=== PATIENT | male | born 1975 | race Two or more races ===

== ENCOUNTER 2017-05-22 11:28 | Inpatient (IN) | payer MEDICAID, OTHER ==
[2017-05-22] VITALS (16 sets, daily range): BP systolic 95–127; BP diastolic 55–77
[~2017-05-22] VITALS: Ht 180.3 cm; Wt 70.3 kg
[~2017-05-22 11:28] MED LIST: BENZ200C45 PO; DIVA500T4 PO; DIVA500T7 PO; LEVE500T20 PO; PHEN-410; QUET25TA; TRAZ-144 PO
--- NOTE | 2017-05-22 11:41 | NUR ---
PT PROVIDING URINE SAMPLE AT THIS TIME
--- NOTE | 2017-05-22 11:50 | NUR ---
DR ISAAC AT BEDSIDE FOR EVAL
[2017-05-22] MEDS ORDERED: IV NS 0.9% 1,000 ML BAG IV ONE (12:00)
[2017-05-22] MEDS ORDERED: ACTIVATED CHARCOAL 25 GM/120 ML TUBE PO ONE (12:00)
--- NOTE | 2017-05-22 12:08 | NUR ---
CALLED POISON CONTROL, SPOKE WITH PATRICIA, HE SAID TO WATCH PT FOR A MINIMUM OF 6 HOURS, TO LOOK OUT FOR DECREASING LEVEL OF CONSCIOUSNESS, SINUS TACHY, HYPOTENSION, SEIZUIRE, HYPERTHERMIA, HE SAID TO DO AN EKG AND TO LOOK OUT FOR QT WIDENING AND IF ITS GREATER THAN 500 MILISECONDS TO CONSIDER GIVING MAG SULFATE. HE SAID TO ORDER A TYLENOL LEVEL, ASPIRIN LEVEL, URINE TOX SCREEN, AND CHEMISTRY, INFORMED OF WHAT PATRICIA SAID.
--- NOTE | 2017-05-22 12:08 | NUR ---
REHANA #18 IV ACCESS. BLOOD SAMPLE COLLECTED SENT TO LAB
[2017-05-22 12:11] LABS: BASOPHILS % (AUTO) 0.2 % (0.0-2.0); EOSINOPHILS # (AUTO) 0.2 /CMM (0.0-0.7); EOSINOPHILS % (AUTO) 2.9 % (0.0-6.0); HEMATOCRIT 40 % (39-51); HEMOGLOBIN 13.5 g/dL (13.5-17.5); LYMPHOCYTES # (AUTO) 1.1 /CMM (0.8-4.8); LYMPHOCYTES % (AUTO) 14.4 % (20.0-44.0); MEAN CORPUSCULAR HEMOGLOBIN 32 PG (26.0-33.0); MEAN CORPUSCULAR HGB CONC 34 g/dl (31.0-36.0); MEAN CORPUSCULAR VOLUME 95 fL (80-96); MONOCYTES # (AUTO) 0.4 /CMM (0.1-1.30); MONOCYTES % (AUTO) 4.7 % (2.0-12.0); NEUTROPHILS # (AUTO) 6.1 /CMM (1.8-8.9); NEUTROPHILS % (AUTO) 77.8 % (43.0-81.0); PLATELET COUNT (AUTO) 208 /CMM (150-450); RDW COEFFICIENT OF VARIATION 12.8 (11.5-15.0); RED BLOOD CELL COUNT(AUTO) 4.18 MIL/uL (4.5-6.0); WHITE BLOOD COUNT (AUTO) 7.8 K/uL (4.3-11.0)
[2017-05-22 12:11] LABS: APPEARANCE,URINE Clear (CLEAR); BILIRUBIN,URINE Negative (NEGATIVE); BLOOD, URINE Trace-lysed Ery/uL (NEGATIVE); COLOR,URINE Yellow (YELLOW); KETONES,URINE Trace (NEGATIVE); LEUKOCYTE ESTERASE ,URINE Negative (NEGATIVE); NITRITE, URINE Negative (NEGATIVE); PH,URINE 6.5 (5.0-8.0); PROTEIN,URINE Negative (NEGATIVE); UGLUCOSE Negative (NEGATIVE); UROBILINOGEN,URINE 0.2 EU/dL (0.2)
[2017-05-22 12:18] LABS: WBC,URINE 0-3 /HPF (0-3)
[2017-05-22 12:19] LABS: BACTERIA,URINE None seen /HPF (None Seen); SQUAMOUS EPITHELIAL CELL,UR Few /HPF (None Seen)
[2017-05-22] MEDS ORDERED: ACTIVATED CHARCOAL 25 GM/120 ML TUBE ONE ×2 (12:20→12:28)
[2017-05-22 12:22] LABS: CALCIUM, SERUM 8.7 mg/dL (8.5-10.1); CARBON DIOXIDE 31 mmol/L (21-32); CHLORIDE 106 mmol/L (98-107); CREATININE 1.1 mg/dL (0.6-1.3); GLUCOSE 94 mg/dL (74-106); POTASSIUM 4.3 mmol/L (3.5-5.1); SODIUM SERUM 144 mmol/L (136-145); UREA NITROGEN, BLOOD 13 mg/dL (7-18)
[2017-05-22 12:27] LABS: ACETAMINOPHEN 0 ug/ml (10-30); ALANINE AMINOTRANSFERASE 17 U/L (12-78); ALBUMIN 3.6 g/dL (3.4-5.0); ALCOHOL, BLOOD < 3 mg/dL (0-0); ALKALINE PHOSPHATASE 38 U/L (46-116); ASPARTATE AMINOTRANSFERASE 14 U/L (15-37); BILIRUBIN,DIRECT 0.1 mg/dL (0.0-0.2); BILIRUBIN,TOTAL 0.2 mg/dL (0.2-1.0); TOTAL PROTEIN, SERUM 6.8 g/dL (6.4-8.2)
[2017-05-22 12:28] LABS: SALICYLATE 2.3 mg/dL (2.8-20.0)
--- NOTE | 2017-05-22 13:00 | NUR ---
DR.DERDERYAN JACKLYN RAILROAD YARD WORKER, TRANSFERRED CALL TO DR. ISAAC
--- NOTE | 2017-05-22 13:03 | NUR ---
CALLED NURSING SUP. FOR ICU BED
--- NOTE | 2017-05-22 13:11 | NUR ---
SUX GIVEN VERBAL ORDER DR RICHARD FOR INTUBATION
--- NOTE | 2017-05-22 13:15 | NUR ---
INTUBATED PATIENT BY DR ISAAC
--- NOTE | 2017-05-22 13:31 | NUR ---
ATTEMPTERD TO CALL REPORT, NURSE NOT AVAILABLE. WILL CALL BACK IN 10 MINUTES
--- NOTE | 2017-05-22 13:31 | NUR ---
PT IS INTUBATED BY RAZIA SWARTZ FOR AIRWAY PROTECTION. 1ST ATTEMPT INTUBATION FAILED,2ND ATTEMPT INTUBATION SUCCESSFUL. 7.5 ET TUBE IS SECURED @ 23 CM LIPLINE, CO2 DETECTOR CHANGED TO GOLD COLOR POST INTUBATION WITH CLEAR BREATH SOUNDS BILATERAL. VENT SETTINGS PER RT DRIVEN PROTOCOL: AC 16, VT 550, FIO2 100%, PEEP 5 Addendum: 05/22/17 at 1407 by GOYO GRAVES RT Amended: Links added.
[2017-05-22] MEDS ORDERED: PROPOFOL 100 ML IV ONE (13:37)
--- NOTE | 2017-05-22 13:51 | NUR ---
ATTEMPTED TO CALL FOR REPORT, AZAM OLIVA NOWHERE TO BE FOUND PER CAR INSTALLATIONS SUPERVISOR
[2017-05-22] MEDS: PROPOFOL 100 ML IV PRN ×2 (13:55→21:12)
--- NOTE | 2017-05-22 14:03 | NUR ---
GIVEN TO AZAM OLIVA FOR COCREPORT Addendum: 05/22/17 at 1403 by TOM REPORT GIVEN TO AZAM OLIVA FOR FARTUN
[2017-05-22] MEDS ORDERED: SUCCINYLCHOLINE CHLORIDE 20 MG/ML VIAL IV ONE (14:30)
[2017-05-22] MEDS: PANTOPRAZOLE 40 MG TABLET.DR PO SCH (15:00)
[2017-05-22] MEDS ORDERED: ACETAMINOPHEN 325 MG TABLET PO PRN (15:00)
[2017-05-22] MEDS ORDERED: Z GUARD REMEDY 2 OZ OINT TP PRN (15:00)
[2017-05-22] MEDS ORDERED: HYDROCODONE/APAP 5/325MG 1 EACH TABLET PO PRN (15:00)
[2017-05-22] MEDS ORDERED: ZOLPIDEM TARTRATE 5 MG TABLET PO PRN (15:00)
[2017-05-22] MEDS ORDERED: ONDANSETRON HCL/PF 4 MG/2 ML VIAL IVP PRN (15:00)
[2017-05-22] MEDS: ENOXAPARIN SODIUM 40 MG/0.4 ML DISP.SYRIN SQ SCH (15:30)
[2017-05-22] MEDS: Magnesium 1GM/D5W 100ML PREMIX 100 ML IV SCH ×2 (15:30→16:23)
[2017-05-22 15:33] LABS: ABG OXYGEN SATURATION 98.7 % (92.0-98.5); ABG PCO2 42.2 mmHg (35.0-45.0); ABG PH 7.405 (7.350-7.450); ABG PO2 223.4 mmHg (75.0-100.0); AaDO2 85.6 mmHg; COHb 0.5 % (0.5-1.5); O2Hb 97.2 % (94.0-97.0); PEEP,BG 5 cm H2O; SITE, ABG Left Radial; VT, ABG 550 mL
--- NOTE | 2017-05-22 19:47 | NUR ---
GEOLOGICAL SCIENCE TEACHER: RECEIVED PT FROM AZAM/RN , ADMITTED TODAY WITH DRUG OVERDOSE, INTUBATED 7.03/21, VENT SETTING VERIFIED AC 16 TV 550 FIO2 35% PEEP 5. SEDATED WITH DIPRIVAN AT 30 MCG/KG/MIN. BILATERAL SOFT RESTRAINTS ON FOR SAFETY REASON AND TO PREVENT SELF EXTUBATION. CARRILLO CATH INTACT. IV ACCESS RH #18, LEFT H#18 NS RUNNING AT 150 ML/HR. SKIN IS INTACT. KEEP TURING Q2H. SKIN PROTECTION MEASURES APPLIED. SAFETY PRECAUTION PLACED. BED ALARM ON. COMPLETE ASSESSMENT SEE ON FLOW SHEET. V/S STABLE, EKG Q4H TO CHECK QT INTERVALS IF ITS MORE THAN 500 CALL MD. AFEBRILE. KEEP MONITORING...
--- NOTE | 2017-05-22 19:51 | NUR ---
PT RECEIVED INTUBATED WITH 7.5 ETT SECURED AT 23CM AT THE LIP. NO RESP DISTRESS NOTED. PT TOLERATING VENT SETTINGS. BS COARSE BILAT. SX'D FOR THIN DARK SECRETIONS. VENT ALARMS SET AND AUDIBLE. AMBU BAG AT BEDSIDE. WILL CONTINUE TO MONITOR. Addendum: 05/22/17 at 1953 by RICHARD WILKS RT Amended: Links added.
[2017-05-22] MEDS: IV NS 0.9% 1,000 ML IV PRN (23:53)
[2017-05-23] VITALS (27 sets, daily range): BP systolic 101–148; BP diastolic 65–100
[2017-05-23] MEDS: PROPOFOL 100 ML IV PRN ×2 (03:13→06:42)
[2017-05-23 04:57] LABS: BASOPHILS # (AUTO) 0.1 /CMM (0.0-0.2); BASOPHILS % (AUTO) 0.7 % (0.0-2.0); EOSINOPHILS # (AUTO) 0.4 /CMM (0.0-0.7); EOSINOPHILS % (AUTO) 4.6 % (0.0-6.0); HEMATOCRIT 41 % (39-51); HEMOGLOBIN 14.6 g/dL (13.5-17.5); LYMPHOCYTES # (AUTO) 1.7 /CMM (0.8-4.8); LYMPHOCYTES % (AUTO) 19.9 % (20.0-44.0); MEAN CORPUSCULAR HEMOGLOBIN 34 PG (26.0-33.0); MEAN CORPUSCULAR HGB CONC 36 g/dl (31.0-36.0); MEAN CORPUSCULAR VOLUME 96 fL (80-96); MONOCYTES # (AUTO) 0.8 /CMM (0.1-1.30); MONOCYTES % (AUTO) 9.2 % (2.0-12.0); NEUTROPHILS # (AUTO) 5.5 /CMM (1.8-8.9); NEUTROPHILS % (AUTO) 65.6 % (43.0-81.0); PLATELET COUNT (AUTO) 176 /CMM (150-450); RED BLOOD CELL COUNT(AUTO) 4.26 MIL/uL (4.5-6.0); WHITE BLOOD COUNT (AUTO) 8.5 K/uL (4.3-11.0)
[2017-05-23 05:26] LABS: ALBUMIN 2.8 g/dL (3.4-5.0); BILIRUBIN,TOTAL 0.6 mg/dL (0.2-1.0); CALCIUM, SERUM 7.4 mg/dL (8.5-10.1); MAGNESIUM 2.4 mg/dL (1.8-2.4); PHOSPHORUS 1.8 mg/dL (2.5-4.9); POTASSIUM 4.1 mmol/L (3.5-5.1); TOTAL PROTEIN, SERUM 5.8 g/dL (6.4-8.2)
[2017-05-23] MEDS: IV NS 0.9% 1,000 ML IV PRN ×2 (06:31→12:47)
[2017-05-23] MEDS: PANTOPRAZOLE 40 MG TABLET.DR PO SCH (07:21)
--- NOTE | 2017-05-23 08:50 | NUR ---
SCHOOL PATROL- DR. WADDELL AT BEDSIDE. UPDATED MD ON PT'S CONDITION. STAT EKG ORDERED PER MD. 0900- RT AT BEDSIDE. EKG DONE. GIVEN TO MD FOR REVIEW. REPEAT EKGS NO LONGER NEEDED. ORDER DISCONTINUED. WILL CONTINUE TO MONITOR.
--- NOTE | 2017-05-23 09:00 | NUR ---
TECHNICAL INTERN- SEDATION VACATION DONE. PT AWAKE, TRACKS AND OPENS EYES. ABLE TO FOLLOW SIMPLE COMMANDS. DIPRIVAN RE-STARTED PER PROTOCOL.
--- NOTE | 2017-05-23 09:15 | NUR ---
DECORATION CHECKER- DR. CONTRERAS AT BEDSIDE. UPDATED MD ON PT'S STATUS. OBTAINED ORDERS FOR VENT CHANGES. RELAYED CHANGES TO RT. ABGS TO BE DONE 30 MINS POST VENT CHANGES. ALL ORDERS PLACED. WILL CONTINUE TO MONITOR. 0955- PT EXTUBATED BY RT. NO RESPIRATORY DISTRESS NOTED. WILL CONTINUE TO MONITOR.
[2017-05-23] MEDS ORDERED: POTASSIUM PHOSPHATE MM 15 MMOL in IV D5W 250 ML IV SCH (09:30)
[2017-05-23 09:39] LABS: ABG BASE EXCESS 0.3 mmol/L; ABG OXYGEN SATURATION 98.2 % (92.0-98.5); ABG PCO2 40.5 mmHg (35.0-45.0); ABG PH 7.408 (7.350-7.450); ABG PO2 155.7 mmHg (75.0-100.0); AaDO2 46.8 mmHg; COHb 0.3 % (0.5-1.5); MetHb 0.9 % (0.0-1.5); SITE, ABG Left Radial; VENT MODE, BG SIMV PS12; VT, ABG 550 mL
--- NOTE | 2017-05-23 09:56 | NUR ---
PT EXTUBATED POSTED ABG PER MD ORDER. ZERO DISTRESS NOTED AT THIS TIME.
[2017-05-23] MEDS: POTASSIUM PHOSPHATE MM 7.5 MMOL in IV D5W 100 ML IV SCH ×2 (10:30→13:40)
--- NOTE | 2017-05-23 10:46 | NUR ---
Pt. is a 41 year old male who was admitted to [facility] for an intentional overdose. YVONNE sent clinicals via email to [facility] intake for psychiatric hospitalization. YVONNE received a call from Imelda (intake) at [facility] ([phone]) informing YVONNE that the pt. was discharged from [facility] yesterday approximately around 10:30AM and was given a prescription for Seroquel. It appears to be that pt. went to the pharmacy filled his prescription of Seroquel and intentionally overdosed on the medication prior to coming to [facility]. Imelda informed SW they will not be able to accept pt. back at their facility and states he needs a locked facility. YVONNE consulted with psychiatrist Dr. Staples regarding YVONNE's conversation with Imelda from [facility]. Dr. Staples informed YVONNE that pt. informed him that he did fill his prescription, overdosed on the pills and walked himself to the ED at [facility]. Once pt. is downgraded from ICU to the medical floor, pt. will be evaluated by the crisis team for a possible 5150 hold if deemed appropriate.
[2017-05-23] MEDS ORDERED: SUCCINYLCHOLINE CHLORIDE 20 MG/ML VIAL IV ONE (10:56)
--- NOTE | 2017-05-23 16:40 | NUR ---
CNC MANUFACTURING ENGINEER- SPOKE TO DR. WADDELL. OBTAINED ORDERS TO REMOVE CARRILLO CATHETER. PT A/O X3, CONTINENT AND ABLE TO USE URINAL. STARTED ON SOFT DIET AND DRINKING FLUIDS. OK TO D/C IVF OF NS @ 150 MLS/HR PER MD. ORDERS PLACED. WILL CONTINUE TO MONITOR.
--- NOTE | 2017-05-23 17:00 | NUR ---
TRICK RODEO RIDER- CARRILLO CATHETER REMOVED. PT TOLERATED PROCEDURE WELL. URINAL AT BEDSIDE. WILL CONTINUE TO MONITOR.
[2017-05-23] MEDS: ENOXAPARIN SODIUM 40 MG/0.4 ML DISP.SYRIN SQ SCH (21:11)
[2017-05-23] MEDS: QUETIAPINE FUMARATE 100 MG TABLET PO SCH (21:12)
[2017-05-23] MEDS: DIVALPROEX SODIUM 500 MG TABLET.DR PO SCH (21:12)
--- NOTE | 2017-05-23 22:45 | NUR ---
FENCE INSTALLER HELPER: P COMFORTABLY SLEEPING, SITTER AT BEDSIDE FOR SUICIDAL PRECAUTION, PT DENIED SUICIDE PLAN AT THIS TIME. [place] EVAL UPON DOWNGRADE TO ANOTHER UNIT. PT DENIED HERNANDEZ. DUE MEDS GIVEN. ON ROOM AIR SATURATING 99% WITHOUT DISTRESS. SINUS RHYTHM ON MONITOR. AFEBRILE. BP STABLE. ONGOING MONITORING...
[2017-05-24] VITALS (10 sets, daily range): BP systolic 118–130; BP diastolic 67–89
--- NOTE | 2017-05-24 07:30 | NUR ---
ICU/RN: PT RECEIVED IN BED, A&OX4, CALM, COOPERATIVE, NO DISTRESS NOTED, C/O MILD SORE THROAT S/P EXTUBATION, PROVIDED WITH ICE CHIPS. DENIES SI AT THIS TIME, PT APPEARS TO BE HOPEFUL, STATES "IM MAGUI TO BE ALIVE AFTER TAKING ALL THOSE PILLS."
[2017-05-24] MEDS: DIVALPROEX SODIUM 500 MG TABLET.DR PO SCH (07:57)
[2017-05-24] MEDS: PANTOPRAZOLE 40 MG TABLET.DR PO SCH (07:58)
[2017-05-24] MEDS: QUETIAPINE FUMARATE 100 MG TABLET PO SCH (07:58)
--- NOTE | 2017-05-24 10:45 | NUR ---
MS DIGESTER OPERATOR NOTE PATIENT RECEIVED FROM ICU, RECEIVED REPORT FROM HAZEL MEDINA. NO PAIN AT THIS TIME. NO SOB OR DISTRESS NOTED. CALL LIGHT WITHIN REACH. SAFETY MEASURES IMPLEMENTED. SITTER AT BEDSIDE. AWAITING MD CONSULT WITH DR. RAHMAN. NO NEW ORDERS AT THIS TIME. ABLE TO COMMUNICATE NEEDS. WILL CONTINUE TO MONITOR
--- NOTE | 2017-05-24 10:45 | NUR ---
MS/RN: PT TRANSFERRED TO MS 321-2 IN STABLE CONDITION ACCOMPANIED BY RN AND SITTER. REPORT GIVEN TO HAZEL CASTELLANOS FOR FARTUN.
--- NOTE | 2017-05-24 16:37 | NUR ---
MS CANNERY WORKER NOTE PATIENT IS ALERT AND ORIENTED x4. NO PAIN AT THIS TIME. NO SOB OR DISTRESS NOTED. ALL BELONGINGS ACCOUNTED FOR. IV REMOVED, SKIN INTACT. ON 5150 HOLD STARTED ON 05/24/17. TRANSFERRING TO [facility], GAVE REPORT TO HAZEL PEREZ AT [facility] UNDER DR. BOND. MEDICALLY CLEARED FROM AND DR. RAHMAN. LEFT VIA AMBULANCE. ALL DISCHARGE INSTRUCTIONS GIVEN TO HAZEL PEREZ.
== END 2017-05-24 16:38 | DRG 812 ==
LOC: ER 11:36 → ICU 13:57 → MED 05-24 10:42
PROVIDERS: ADMIT Internal Medicine; ATTEND Internal Medicine
PROC: 0BH17EZ Insertion of Endotracheal Airway into Trachea, Via Natural or Artificial Opening (ICD-10-PCS; principal; 2017-05-22)
PROC: 5A1945Z Respiratory Ventilation, 24-96 Consecutive Hours (ICD-10-PCS; principal; 2017-05-22)
DX: T43.592A Poisoning by other antipsychotics and neuroleptics, intentional self-harm, initial encounter (principal); J96.00 Acute respiratory failure, unspecified whether with hypoxia or hypercapnia; G40.909 Epilepsy, unspecified, not intractable, without status epilepticus; E83.39 Other disorders of phosphorus metabolism; J45.909 Unspecified asthma, uncomplicated; I25.10 Atherosclerotic heart disease of native coronary artery without angina pectoris; I10 Essential (primary) hypertension; Y92.009 Unspecified place in unspecified non-institutional (private) residence as the place of occurrence of the external cause; F31.5 Bipolar disorder, current episode depressed, severe, with psychotic features; Z79.899 Other long term (current) drug therapy
CPT/HCPCS: 31720; 36415; 36600; 71010-TC; 80048-TC; 80053-TC; 80061-TC; 80076-TC; 80164-TC; 80305; 81000-TC; 82803-TC; 83735-TC; 84100-TC; 84484-TC; 85025-TC; 87081-TC; 94002-TC; 94003-TC; 94762-TC; 94799-TC; A4606; G0480; J0330; J1650; J3475; J3490; J7030; J7060; Z7610

== ENCOUNTER 2022-04-11 23:27 | Emergency (ER) | payer OTHER ==
[~2022-04-11] VITALS: Ht 180.3 cm; Wt 72.6 kg
[~2022-04-11 23:27] MED LIST changes: -BENZ200C45 PO; +BENZ200C53 PO; +DIVA-78 PO; -DIVA500T7 PO; -TRAZ-144 PO; +TRAZ-182 PO
--- NOTE | 2022-04-11 23:42 | NUR ---
TO ER BED 18. BIBS FOR S/I WITH PLAN TO OD ON PILLS SEEKING VOLUNTARY ADMISSION TO [facility] Y[facility]. AAOX4. AMBULATORY. BELONGINGS OBTAINED AND SECURED. CHANGED INTO GOWN. SITTER 1:1. CONNECTED TO MONITOR. VSS. AWAITING MD MCDONALD
--- NOTE | 2022-04-11 23:43 | NUR ---
COVID SWAB DONE AND SENT TO LAB
--- NOTE | 2022-04-11 23:43 | NUR ---
URINE COLLECTED AND SENT TO LAB
--- NOTE | 2022-04-11 23:54 | NUR ---
INSTRUCTOR OF NURSING AT PT'S BEDSIDE
[2022-04-12 00:02] LABS: BILIRUBIN,URINE NEGATIVE (NEGATIVE); COLOR,URINE DARK YELLOW (YELLOW); LEUKOCYTE ESTERASE ,URINE NEGATIVE (NEGATIVE); NITRITE, URINE NEGATIVE (NEGATIVE); PROTEIN,URINE TRACE mg/dl (NEGATIVE); UGLUCOSE NEGATIVE (NEGATIVE); UROBILINOGEN,URINE 0.2 EU/dL (0.2)
[2022-04-12 00:14] LABS: BACTERIA,URINE Rare /HPF (None Seen); RBC,URINE 0-2 /HPF (0-2); SQUAMOUS EPITHELIAL CELL,UR Few /HPF (None Seen); WBC,URINE 0-2 /HPF (0-3)
[2022-04-12 00:15] LABS: MUCUS,URINE Moderate /LPF (None Seen)
[2022-04-12 00:33] LABS: BASOPHILS # (AUTO) 0.1 K/uL (0.0-0.2); BASOPHILS % (AUTO) 0.6 % (0.0-2.0); HEMATOCRIT 37 % (39-51); HEMOGLOBIN 12.5 g/dL (13.5-17.5); LYMPHOCYTES # (AUTO) 1.6 K/uL (0.8-4.8); LYMPHOCYTES % (AUTO) 17.6 % (20.0-44.0); MEAN CORPUSCULAR HGB CONC 33 g/dl (31.0-36.0); MEAN CORPUSCULAR VOLUME 94 fL (80-96); MONOCYTES # (AUTO) 0.9 K/uL (0.1-1.30); NEUTROPHILS # (AUTO) 6.3 K/uL (1.8-8.9); NEUTROPHILS % (AUTO) 69.8 % (43.0-81.0); PLATELET COUNT (AUTO) 332 K/uL (150-450); RED BLOOD CELL COUNT(AUTO) 3.99 MIL/uL (4.5-6.0); WHITE BLOOD COUNT (AUTO) 9.1 K/uL (4.3-11.0)
[2022-04-12 00:46] LABS: CALCIUM, SERUM 9.2 mg/dL (8.5-10.1); CARBON DIOXIDE 33 mmol/L (21-32); CHLORIDE 101 mmol/L (98-107); GLUCOSE 84 mg/dL (74-106); POTASSIUM 4.3 mmol/L (3.5-5.1); SODIUM SERUM 138 mmol/L (136-145); UREA NITROGEN, BLOOD 15 mg/dL (7-18)
[2022-04-12 00:52] LABS: ALANINE AMINOTRANSFERASE 46 U/L (12-78); ALBUMIN 4.1 g/dL (3.4-5.0); ALKALINE PHOSPHATASE 63 U/L (46-116); ASPARTATE AMINOTRANSFERASE 36 U/L (15-37); BILIRUBIN,DIRECT 0.1 mg/dL (0.0-0.2); BILIRUBIN,TOTAL 0.4 mg/dL (0.2-1.0); TOTAL PROTEIN, SERUM 7.7 g/dL (6.4-8.2)
[2022-04-12 01:00] LABS: ACETAMINOPHEN 0 ug/ml (10-30); ALCOHOL, BLOOD < 3 mg/dL (0-0)
--- NOTE | 2022-04-12 04:19 | NUR ---
CLINICALS FAXED TO [facility]TA[facility]
--- NOTE | 2022-04-12 08:39 | NUR ---
YVONNE called [facility] TEL:[phone] to get status of admission to [facility]. Per intake they have received clinicals which are being reviewed.
--- NOTE | 2022-04-12 13:42 | NUR ---
YVONNE called [facility] TEL:[phone] again for upate. Roel stated he will call [employer] for update and call this SW back in a few minutes.
--- NOTE | 2022-04-12 14:10 | NUR ---
PT ACCEPTED TO [facility] UNDER DR. DENISE CALL [phone] FOR REPORT ETA 144 THANK YOU.
[2022-04-12 14:21] VITALS: BP 116/82
--- NOTE | 2022-04-12 14:52 | NUR ---
PICKED UP BY [facility]. PATIENT IN STABLE CONDITION. ALL BELONGINGS RETURNED TO THE PATIENT.
== END 2022-04-12 14:54 ==
LOC: ER 23:31
DX: R45.851 Suicidal ideations (principal); F14.10 Cocaine abuse, uncomplicated; Z20.822 Contact with and (suspected) exposure to COVID-19; F17.200 Nicotine dependence, unspecified, uncomplicated; J45.909 Unspecified asthma, uncomplicated; G40.909 Epilepsy, unspecified, not intractable, without status epilepticus; Z79.899 Other long term (current) drug therapy
CPT/HCPCS: 36415; 80048; 80076; 80143; 80307; 80320; 81001; 85025; 87426; 99285; C9803; G0480

== ENCOUNTER 2022-12-22 01:02 | Emergency (ER) | payer OTHER ==
[~2022-12-22] VITALS: Ht 180.3 cm; Wt 77.1 kg
--- NOTE | 2022-12-22 01:12 | NUR ---
[id number] FROM CHICA LUNDY FOR WITNESSED SYNCOPAL EPISODE. HYPOTENSION ON SCENE WITH "HI" GLUCOSE READING. NORMOTENSIVE BS 117 AT TRIAGE. DENIES PAIN. PT IS AAO X 4, BREATHING UNLABORED, SATURATION AT 100% ON ROOM AIR. PT ATTACHED TO MONITOR AND PULSE OX. AWAITING MD MCDONALD.
--- NOTE | 2022-12-22 01:13 | NUR ---
URINE COLLECTED AND SENT TO LAB
--- NOTE | 2022-12-22 01:27 | NUR ---
IV LINE STARTED AT R HAND 20G, BLOOD DRAWN AND SENT TO LAB
--- NOTE | 2022-12-22 01:27 | NUR ---
PT TAKEN TO CT VIA JAY
[2022-12-22] MEDS ORDERED: IV NS 0.9% 1,000 ML BAG IV ONE (01:30)
[2022-12-22 01:51] LABS: BASOPHILS % (AUTO) 0.3 % (0.0-2.0); EOSINOPHILS % (AUTO) 6.1 % (0.0-6.0); HEMATOCRIT 40 % (39-51); HEMOGLOBIN 13.3 g/dL (13.5-17.5); LYMPHOCYTES # (AUTO) 2.1 K/uL (0.8-4.8); LYMPHOCYTES % (AUTO) 35.4 % (20.0-44.0); MEAN CORPUSCULAR HGB CONC 33 g/dl (31.0-36.0); MEAN CORPUSCULAR VOLUME 96 fL (80-96); MONOCYTES # (AUTO) 0.5 K/uL (0.1-1.30); MONOCYTES % (AUTO) 8.6 % (2.0-12.0); NEUTROPHILS # (AUTO) 2.9 K/uL (1.8-8.9); NEUTROPHILS % (AUTO) 49.6 % (43.0-81.0); PLATELET COUNT (AUTO) 238 K/uL (150-450); WHITE BLOOD COUNT (AUTO) 5.9 K/uL (4.3-11.0)
[2022-12-22 01:59] LABS: CALCIUM, SERUM 9.1 mg/dL (8.5-10.1); CARBON DIOXIDE 30 mmol/L (21-32); CHLORIDE 103 mmol/L (98-107); GLUCOSE 117 mg/dL (74-106); POTASSIUM 3.9 mmol/L (3.5-5.1); SODIUM SERUM 139 mmol/L (136-145); UREA NITROGEN, BLOOD 17 mg/dL (7-18)
[2022-12-22 02:05] LABS: ALANINE AMINOTRANSFERASE 26 U/L (12-78); ALBUMIN 3.4 g/dL (3.4-5.0); ALKALINE PHOSPHATASE 59 U/L (46-116); ASPARTATE AMINOTRANSFERASE 16 U/L (15-37); BILIRUBIN,DIRECT 0.1 mg/dL (0.0-0.2); BILIRUBIN,TOTAL 0.2 mg/dL (0.2-1.0); TOTAL PROTEIN, SERUM 6.6 g/dL (6.4-8.2)
--- NOTE | 2022-12-22 03:38 | NUR ---
COVID SWAB DONE AND SENT TO LAB
--- NOTE | 2022-12-22 03:57 | NUR ---
CM OF PT'S IPA WILL MAKE ARRANGEMENT FOR DIGNITY. THEY WILL ARRANGE ALSO FOR PEER TO PEER CONFERENCE CALL
--- NOTE | 2022-12-22 04:30 | NUR ---
ACCEPTING MD IS DR RUSSELL.
--- NOTE | 2022-12-22 04:30 | NUR ---
PEER TO PEER CONFERENCE DONE BY DR ROCA FROM [facility]. PATIENT WILL BE TRANSFERRING TO [facility]. CM WILL CALL BACK TO CONFIRM ROOM
--- NOTE | 2022-12-22 06:43 | NUR ---
RECEIVED A CALL FROM [facility] (ZACK), HE WILL SET A TRANSPORT FOR PATIENT AND WILL CALL BACK FOR ETA.
--- NOTE | 2022-12-22 06:56 | NUR ---
RECEIVED A CALL FROM [facility], PATIENT WILL BE ADMITTED TO [facility]. ACCEPTING MD : DR BLOCK, RM 924, CALL .. GIVE REPORT AFTER 0730H TRANSPORT - [facility] ([facility]) ETA 10AM
--- NOTE | 2022-12-22 07:12 | NUR ---
PER PT, HE LEFT HIS BELONGINGS AT [facility], TELEPHONE CALL TO [facility] AT [phone], WAS ON HOLD FOR MORE THAN 15 MINS. WILL ENDORSE TO AM SHIFT RN TO FOLLOW UP
--- NOTE | 2022-12-22 07:57 | NUR ---
REPORT GIVEN TO DANK OLIVA FOR FARTUN.
[2022-12-22 08:39] VITALS: BP 133/76
--- NOTE | 2022-12-22 08:39 | NUR ---
PT APPEARS TO BE SLEEPING COMFORTABLY IN BED. VSS. BREATHING EVEN AND UNLABORED. SAFETY PRECAUTIONS IN PLACE.
--- NOTE | 2022-12-22 11:43 | NUR ---
[facility] [phone] WU
--- NOTE | 2022-12-22 11:51 | NUR ---
RIOS OscarMILAN MGMT [phone] WILL CALL US BACK.
--- NOTE | 2022-12-22 12:25 | NUR ---
REPORT GIVEN TO [facility] AM[facility]ULANCE UNIT 45.
--- NOTE | 2022-12-22 12:56 | NUR ---
TRANSPORTED TO [facility] IN STABLE CONDITION.
== END 2022-12-22 12:59 | disposition short-term general hospital (02) ==
LOC: ER 01:06
DX: R55 Syncope and collapse (principal); J45.909 Unspecified asthma, uncomplicated; Z60.2 Problems related to living alone; Z79.899 Other long term (current) drug therapy; Z20.822 Contact with and (suspected) exposure to COVID-19
CPT/HCPCS: 99285; 96360; 93005; 71045; 70450; 85025; 80048; 80076; 36415; 84484 ×2; 85730; 86850; 82962; 87426; 80320; 80307; C9803; G0480

== ENCOUNTER 2023-01-09 12:22 | Inpatient (IN) | payer OTHER ==
[~2023-01-09] VITALS: Ht 180.3 cm; Wt 73.0 kg
--- NOTE | 2023-01-09 12:38 | NUR ---
C/O ABDOMINAL PAIN S/P TAKING "30 100MG TAB ZOLOFT, 20 TAB SEROQUEL". +SI REQUESTING [facility]CH [facility]
--- NOTE | 2023-01-09 12:40 | NUR ---
ESTABLISHED IV LINE 20 G RIGHT FOREARM
--- NOTE | 2023-01-09 12:43 | NUR ---
BLOOD/URINE SAMPLE OBTAINED
--- NOTE | 2023-01-09 12:45 | NUR ---
COVID SWAB TAKEN SENT TO LAB
--- NOTE | 2023-01-09 12:45 | NUR ---
CALLED POISON CONTROL [phone] PER [facility]: PLEASE GIVE ACTIVATED CHARCOAL, EKG, LABS REPEAT EKG 4-6 HOURS. LOOK FOR QTC LONGATION IF >500 TREATED WITH MAG AND ELECTROLYTES. CMP, TYLELOL, ASA, TOXICOLOGY. TREAT WITH BENZO IF AGITATION OR SEIZURES. PROVIDE SUPPORTIVE CARE. OBS FOR SIX HOURS.
[2023-01-09 13:06] LABS: BASOPHILS % (AUTO) 0.1 % (0.0-2.0); EOSINOPHILS % (AUTO) 4.5 % (0.0-6.0); HEMATOCRIT 38 % (39-51); HEMOGLOBIN 12.6 g/dL (13.5-17.5); LYMPHOCYTES # (AUTO) 1.5 K/uL (0.8-4.8); LYMPHOCYTES % (AUTO) 23.7 % (20.0-44.0); MEAN CORPUSCULAR HGB CONC 33 g/dl (31.0-36.0); MEAN CORPUSCULAR VOLUME 96 fL (80-96); MONOCYTES # (AUTO) 0.9 K/uL (0.1-1.30); MONOCYTES % (AUTO) 13.8 % (2.0-12.0); NEUTROPHILS # (AUTO) 3.6 K/uL (1.8-8.9); NEUTROPHILS % (AUTO) 57.9 % (43.0-81.0); PLATELET COUNT (AUTO) 213 K/uL (150-450); RED BLOOD CELL COUNT(AUTO) 4.03 MIL/uL (4.5-6.0); WHITE BLOOD COUNT (AUTO) 6.2 K/uL (4.3-11.0)
[2023-01-09 13:08] LABS: BILIRUBIN,URINE NEGATIVE (NEGATIVE); COLOR,URINE YELLOW (YELLOW); LEUKOCYTE ESTERASE ,URINE NEGATIVE (NEGATIVE); NITRITE, URINE NEGATIVE (NEGATIVE); PH,URINE 6.5 (5.0-8.0); PROTEIN,URINE NEGATIVE (NEGATIVE); UGLUCOSE NEGATIVE (NEGATIVE); UROBILINOGEN,URINE 0.2 EU/dL (0.2)
[2023-01-09 13:47] LABS: CALCIUM, SERUM 9.4 mg/dL (8.5-10.1); CARBON DIOXIDE 30 mmol/L (21-32); CHLORIDE 103 mmol/L (98-107); GLUCOSE 89 mg/dL (74-106); POTASSIUM 4.4 mmol/L (3.5-5.1); SODIUM SERUM 140 mmol/L (136-145); UREA NITROGEN, BLOOD 11 mg/dL (7-18)
[2023-01-09 13:52] LABS: ALANINE AMINOTRANSFERASE 28 U/L (12-78); ALBUMIN 3.7 g/dL (3.4-5.0); ALCOHOL, BLOOD < 3 mg/dL (0-0); ALKALINE PHOSPHATASE 54 U/L (46-116); ASPARTATE AMINOTRANSFERASE 21 U/L (15-37); BILIRUBIN,DIRECT 0.1 mg/dL (0.0-0.2); BILIRUBIN,TOTAL 0.1 mg/dL (0.2-1.0); TOTAL PROTEIN, SERUM 6.9 g/dL (6.4-8.2)
[2023-01-09 13:54] LABS: ACETAMINOPHEN 0 ug/ml (10-30)
[2023-01-09 14:34] LABS: BAND % (MANUAL) 3 % (0.0-5.0); EOSINOPHILS % (MANUAL) 4 % (0-4); LYMPHOCYTES % (MANUAL) 21 % (16-48); MONOCYTES % (MANUAL) 13 % (0-11.0); NEUTROPHILS % (MANUAL) 49 (42-76)
--- NOTE | 2023-01-09 19:35 | NUR ---
RECEIVED PT ASLEEP BUT AROUSABLE. CAME EARLIER WITH CC OF ABDOMINAL PAIN. +SI. PATIENT IS RESTING AT BED 12. -CP, -SOB, NOT IN CP DISTRESS. WILL CONTINUE TO MONITOR.
[2023-01-09] MEDS ORDERED: IV NS 0.9% 1,000 ML BAG IV ONE (21:30)
[2023-01-09] MEDS ORDERED: LORAZEPAM 1 MG TABLET PO ONE (23:30)
[2023-01-09] MEDS ORDERED: CHLORDIAZEPOXIDE HCL 25 MG CAPSULE PO ONE (23:30)
[2023-01-10] MEDS ORDERED: LORAZEPAM INJ 2 MG/ML VIAL ONE ×3 (00:23→05:36)
[2023-01-10] MEDS ORDERED: IV NS 0.9% 1,000 ML BAG IV ONE (00:30)
[2023-01-10] MEDS ORDERED: LORAZEPAM INJ 2 MG/ML VIAL IV ONE ×3 (00:30→06:00)
--- NOTE | 2023-01-10 03:44 | NUR ---
[facility] PAGED
[2023-01-10] MEDS ORDERED: ONDANSETRON HCL/PF 4 MG/2 ML VIAL IVP PRN (04:00)
[2023-01-10] MEDS ORDERED: ACETAMINOPHEN 325 MG TABLET PO PRN (04:00)
[2023-01-10] MEDS ORDERED: MAGNESIUM HYDROXIDE 30 ML UDC PO PRN (04:00)
[2023-01-10] MEDS ORDERED: IV LR 1000 ML 1,000 ML IV PRN (04:00)
--- NOTE | 2023-01-10 04:41 | NUR ---
Sergey turcios in [facility] - 01/10/23 at 0451 by DEJUAN IV JOSE HIGUERA
--- NOTE | 2023-01-10 04:41 | NUR ---
Sergey turcios in ED - 01/10/23 at 0451 by DEJUAN Patient discharged to home in stable condition. Written and verbal after care instructions given. Patient verbalizes understanding of instruction.
--- NOTE | 2023-01-10 04:54 | NUR ---
CALLED COBOL APPLICATION DEVELOPER CAM ABOUT PT'S ADMISSION TO [place] WITH SI. HE SAID TO WAIT FOR MORNING SHIFT SO THEY CAN PROVIDE SITTER.
[2023-01-10 06:12] LABS: BASOPHILS % (AUTO) 0.1 % (0.0-2.0); EOSINOPHILS % (AUTO) 0.3 % (0.0-6.0); HEMATOCRIT 38 % (39-51); HEMOGLOBIN 12.6 g/dL (13.5-17.5); LYMPHOCYTES # (AUTO) 0.6 K/uL (0.8-4.8); LYMPHOCYTES % (AUTO) 4.5 % (20.0-44.0); MEAN CORPUSCULAR HGB CONC 33 g/dl (31.0-36.0); MEAN CORPUSCULAR VOLUME 96 fL (80-96); MONOCYTES # (AUTO) 1.3 K/uL (0.1-1.30); MONOCYTES % (AUTO) 10.9 % (2.0-12.0); NEUTROPHILS # (AUTO) 10.3 K/uL (1.8-8.9); NEUTROPHILS % (AUTO) 84.2 % (43.0-81.0); PLATELET COUNT (AUTO) 197 K/uL (150-450); RED BLOOD CELL COUNT(AUTO) 3.99 MIL/uL (4.5-6.0); WHITE BLOOD COUNT (AUTO) 12.3 K/uL (4.3-11.0)
--- NOTE | 2023-01-10 06:20 | NUR ---
REPORT GIVEN TO HAZEL CONCEPCIONMARIELY
[2023-01-10 06:25] LABS: ALBUMIN 3.4 g/dL (3.4-5.0); BILIRUBIN,TOTAL 0.2 mg/dL (0.2-1.0); CALCIUM, SERUM 8.5 mg/dL (8.5-10.1); CREATININE 1.1 mg/dL (0.6-1.3); MAGNESIUM 2.2 mg/dL (1.8-2.4); POTASSIUM 4.3 mmol/L (3.5-5.1); TOTAL PROTEIN, SERUM 6.5 g/dL (6.4-8.2)
--- NOTE | 2023-01-10 07:00 | NUR ---
TRANSFERRED VIA ACLS PROTOCOL
--- NOTE | 2023-01-10 07:10 | NUR ---
TEXTILE PIN WORKER OPENING NOTE RECEIVED PATIENT ASLEEP BUT AROUSABLE. WITH IV LINE ON RIGHT WRIST #20, NO FLUID RUNNING. PATIENT ON SUBSTANCE WITHDRAWAL OVERDOSE, NO SIGNS OF DISTRESS AT THIS TIME, WITH SITTER BUT NOT PRESENT YET AT THIS TIME, WILL CONTINUE TO MONITOR THE PATIENT.
[2023-01-10] MEDS: PANTOPRAZOLE 40 MG TABLET.DR PO SCH (08:39)
[2023-01-10] MEDS: CHLORDIAZEPOXIDE HCL 25 MG CAPSULE PO SCH ×2 (08:39→17:10)
[2023-01-10] MEDS: LORAZEPAM INJ 2 MG/ML VIAL IV PRN ×2 (08:52→21:32)
[2023-01-10] MEDS ORDERED: SERT100T12 PO (10:45)
[2023-01-10] MEDS ORDERED: QUET300T2 PO (10:45)
--- NOTE | 2023-01-10 17:10 | NUR ---
SS NOTE: SW met with pt. bedside as pt. has stated to ED MD that he took 30 tabs of Zoloft 100 mg and Seroquel 20 tabs of 300 mg few hours ago, patient states that he has done this before in the past and stating he had SI+. Pt. is alert & oriented x 3 and makes good eye contact, pt. has circumstantial thought process and pressured speech, ambulating with unsteady gait with sitter at bedside. The pt. is currently denying SI and stated he is thinking of going to a drug rehab or sober living. Pt. has fair insight and poor judgement. SW will reevaluate the pt. tomorrow and if needed call crisis clinical to evaluate the pt.
--- NOTE | 2023-01-10 19:25 | NUR ---
CAST IRON DRAIN PIPE LAYER CLOSING NOTE PATIENT AWAKE A/O X 4. WITH IV LINE ON RIGHT WRIST #20, NO FLUID RUNNING. PATIENT ON SUBSTANCE WITHDRAWAL OVERDOSE, NO SIGNS OF DISTRESS AT THIS TIME, WITH SITTER. PATIENT HAS MANIFESTED CONSCIOUSNESS AND RECOVERY LATER THIS AFTERNOON AND WAS ABLE TO ANSWER ASSESSMENT QUESTIONS. WILL BE ENDORSED TO ONCOMING CHOPPED STRAND OPERATOR NURSE FOR FARTUN.
--- NOTE | 2023-01-10 19:30 | NUR ---
MEDICAL INSURANCE CLAIMS PROCESSOR OPENING NOTE RECEIVED PATIENT IN BED, AWAKE, ALERT AND ORIENTED X3, WITH SITTER AT BEDSIDE. ABLE TO MAKE NEEDS KNOWN. AFEBRILE AND NOT IN ANY FORM OF ACUTE DISTRESS. BREATHING EVEN AND NON LABORED. NO C/O PAIN OR DISCOMFORT AT THIS TIME. ON TELE MONITORING WITH CURRENT READING OF ST. WITH IV ACCESS ON RIGHT FOREARM-SL. SAFETY MEASURES IN PLACE. KEPT BED IN LOCKED AND IN LOW POSITION. SIDE RAILS UP X2. ADVISED TO USE THE CALL LIGHT WHEN IN NEED OF ASSISTANCE.
[2023-01-10 20:00] VITALS: BP 122/75
[2023-01-11] VITALS: BP 130/80
[2023-01-11 04:00] VITALS: BP 121/56
--- NOTE | 2023-01-11 06:26 | NUR ---
STEAM STATION SUPERVISOR CLOSING NOTE PATIENT IN BED, ASLEEP BUT EASY TO AROUSE AND RESPONSIVE. SITTER AT BEDSIDE. ABLE TO MAKE NEEDS KNOWN. AFEBRILE AND NOT IN ANY FORM OF ACUTE DISTRESS. BREATHING EVEN AND NON LABORED. NO C/O PAIN OR DISCOMFORT THROUGHPUT THE SHIFT. ON TELE MONITORING WITH CURRENT READING OF ST 108. WITH IV ACCESS ON RIGHT FOREARM-SL. MEDICATED ORDERED. MONITORED FOR S/SX. OF WITHDRAWAL. SAFETY MEASURES IN PLACE. KEPT BED IN LOCKED AND IN LOW POSITION. SIDE RAILS UP X2. ADVISED TO USE THE CALL LIGHT WHEN IN NEED OF ASSISTANCE. ALL NURSING NEEDS ATTENDED. ENDORSED TO INCOMING SHIFT FOR CONTINUITY OF CARE.
[2023-01-11 06:32] LABS: MAGNESIUM 2.7 mg/dL (1.8-2.4); PHOSPHORUS 3.5 mg/dL (2.5-4.9); POTASSIUM 3.9 mmol/L (3.5-5.1)
[2023-01-11 06:56] LABS: BASOPHILS % (AUTO) 0.1 % (0.0-2.0); EOSINOPHILS % (AUTO) 1.4 % (0.0-6.0); HEMATOCRIT 39 % (39-51); HEMOGLOBIN 12.9 g/dL (13.5-17.5); LYMPHOCYTES # (AUTO) 0.8 K/uL (0.8-4.8); LYMPHOCYTES % (AUTO) 8.8 % (20.0-44.0); MEAN CORPUSCULAR HGB CONC 34 g/dl (31.0-36.0); MEAN CORPUSCULAR VOLUME 96 fL (80-96); MONOCYTES # (AUTO) 0.8 K/uL (0.1-1.30); MONOCYTES % (AUTO) 8.4 % (2.0-12.0); NEUTROPHILS # (AUTO) 7.5 K/uL (1.8-8.9); NEUTROPHILS % (AUTO) 81.3 % (43.0-81.0); PLATELET COUNT (AUTO) 201 K/uL (150-450); RED BLOOD CELL COUNT(AUTO) 4.05 MIL/uL (4.5-6.0); WHITE BLOOD COUNT (AUTO) 9.3 K/uL (4.3-11.0)
--- NOTE | 2023-01-11 07:35 | NUR ---
MSNS- Received pt awake Ax4. Telemetry with sinus tach. Pt on Room air with non-labored breathing. Pt does not complains of pain or discomfort at this time. Bed rails up x 2, bed locked and on low position. Call light within reach. Pt IV on Righ Forearm intact. Pt has a sitter at bedside.Will continue to monitor.
[2023-01-11 08:00] VITALS: BP 106/69
[2023-01-11] MEDS: PANTOPRAZOLE 40 MG TABLET.DR PO SCH (08:08)
[2023-01-11] MEDS: CHLORDIAZEPOXIDE HCL 25 MG CAPSULE PO SCH ×2 (09:12→17:20)
[2023-01-11 12:00] VITALS: BP 100/73
--- NOTE | 2023-01-11 14:43 | NUR ---
SS Consult: SS consults requested for homelessness, drug use and SI. The pt. is a 47-year-old White male pt. who was admitted to [facility] due to Suicidal attempt with cardio toxic medication per EMR. Upon SS consult, the pt. is Alert & Oriented x 4 and makes good eye contact. The pt. appears unkempt. Pt. has elevated mood & affect. Pt. has pressured speech and normal thought process. Pt. is more oriented today. Pt. was calm & cooperative throughout interview. The pt. denies current HI and denies current hallucinations. Pt. states he is still having SI and states he did intentionally OD with intent to commit suicide. SW explored pt.s mental health Hx. Pt. states he has been diagnosed with Bipolar, Depression, and anxiety. SW explored pt.s living situation, Pt. states he resides in transitional housing [[address] [place] [address]]. SW explored pt.s drug & ETOH use. 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 Pt. states his support system includes his girlfriend, Fidencio tel: [phone] and his godfather. Per pt. he is currently having SI with plan to slit his wrists or OD. YVONNE asked pt. if he is willing to go voluntarily to [facility] for psychiatric Tx. and pt. is agreeable. Plan: SW was referred pt. to [facility] [[facility] [place], [place] [address] FAX:[phone]] for inpatient psychiatric treatment. Patient signed homeless waiver & it was placed in the pt.s chart. SW provided pt. with homeless resources and he accepted them: Winter Detention list : [place] [facility]; [facility] Adult WSP site; [facility] Adult WSP site; and [facility] Adult WSP site; instruction to call 211 for availability. Year-round shelters: [facility] [address] [place] [address] ; [facility] [address] [place] [address]; [facility] [address] [facility] [address] Hygiene: [facility]: [address] [place] ; [facility] [address] [facility] ; [facility] [address] . Food Resources: [place] [facility] at [facility]- [address] [place]; Meet Each Need with Dignity ([facility]) [address] [facility] [place]; [facility] [address] [facility]; [facility] [address] [facility] [address]. Mental Health resources provided: [facility] [address] [place], [place] [phone] ; [facility] [address] [facility] [address], [place], [place] [phone] ; [facility] [address] [place] [address] ; [facility] [address] [place], [place] [phone] Healthcare Clinics: [facility] [address] [facility], [facility] [address]. [place] ; [facility] [address] [facility] [facility] [address] [place] [address]; [facility] [address] [facility]. [place] [phone] Counseling--Outpatient [facility] [address], [place] [address] (Specializes in in-depth psychotherapy for emotional distress: anxiety, depression, interpersonal conflicts, life transitions, childhood abuse) [facility] [address] [place], [place] [phone] (Assist with solving problem marital difficulties, separation & divorce, aging parents, & grief, chronic & terminal illness) [facility] [address] [place] [address] (Deal with loss & grief, anxiety, marital difficulties) Homebound/Mental Health Services [address] [facility], [address] [place] [address] (Provide in-home mental services to people who are incapable of leaving their homes) [facility] for Needs of the Elderly Senior Service/Resource Center [address] [place], [place] [phone] [facility] [address] [place] [address] PSYCHIATRIC OUTPATIENT SERVICES [facility] Partial Hospitalization and Intensive Outpatient Program (Managed Care and [place] Only)[address]. [facility] [phone] [facility] Partial Hospitalization and Outpatient [id number] [facility]. [address] [place], [place] [phone] [facility] Mental Health [place] [id number] [facility]. [address] [place], [place] [phone] [facility] Partial Hospitalization and Outpatient [address] [place], [phone] Substance Abuse resources provided included: [facility] Substance Abuse Self-Helpline ([facility]) ; [facility]LP [address] [facility]. [place] [address] ; [facility] [address] [facility] [address] ; [facility] [address] [facility] [address] ; [facility] [address] [facility] [address] ; [facility] [address] [facility] [address] ; [facility] [address] [facility] [phone] ; [facility] Substance Abuse Helpline(SASH)-[facility] ; [facility] ; [facility] [place]; [facility]; [facility] [place]; [facility] Mulugeta Contrerasaaron; [facility] [place]; [place]; [facility] [place]; [facility] Hospital[facility]. Tierney [place]; Alcoholics Anonymous -SFV; Lx-Qmiv-Bdwporb ; Marijuana Anonymous -[facility]V; Narcotics Anonymous www.na.org;
--- NOTE | 2023-01-11 15:48 | NUR ---
DC PLANNING: Per Nursing vending stand supervisor, Catherine from [facility], they want update Covid test and tox screen. SW notified Winston ANSARI.
[2023-01-11 16:00] VITALS: BP 112/70
--- NOTE | 2023-01-11 17:48 | NUR ---
ms rn patient on bed, still w/ sitter for safety, covid specimen sent to lab, still waiting for urine specimen, no distress noted, for d/c planning in am.
--- NOTE | 2023-01-11 19:40 | NUR ---
WELFARE PROJECT MANAGER OPENING NOTES RECEIVED PATIENT IN BED, AWAKE AND ALERT. A/O X3, WITH SITTER AT BEDSIDE. ABLE TO MAKE NEEDS KNOWN. AFEBRILE AND NOT IN ANY FORM OF ACUTE DISTRESS. ON RA, BREATHING EVEN AND NON LABORED. NO C/O PAIN OR DISCOMFORT AT THIS TIME. ON TELE MONITORING WITH CURRENT READING OF ST @ 108. WITH IV ACCESS ON RIGHT FOREARM-SL. WILL MAINTAIN SAFETY MEASURES WITH BED IN LOWEST AND LOCKED POSITION. SIDE RAILS UP X 2. CALL LIGHT AND TABLE WITHIN EASY REACH. WILL MONITOR THE PATIENT AND WILL CARRY OUT ANY ONGOING AND ACTIVE MD ORDERS.
[2023-01-11] MEDS: LORAZEPAM INJ 2 MG/ML VIAL IV PRN (19:51)
--- NOTE | 2023-01-11 19:51 | NUR ---
RN NOTES- ATIVAN PATIENT REQUESTED FOR AN ATIVAN 0.5MG PRN IV. WILL CONTINUE TO MONITOR THE PATIENT.
[2023-01-11 22:00] VITALS: BP 96/61
--- NOTE | 2023-01-12 07:15 | NUR ---
ASSISTANT MEN'S SOCCER COACH CLOSING NOTES PATIENT IN BED SLEEPING. APPEARS COMFORTABLE. A/O X 4. ON ROOM AIR, BREATHING EVEN AND UNLABORED, NO SOB AND ANY DISTRESS AT THIS TIME. DENIES PAIN OR DISCOMFORT AT THIS TIME. NO SI/HI AVH. SAFETY MEASURES MAINTAINED WITH BED IN LOCKED AND IN LOW POSITION. SIDE RAILS UP X 2. CALL LIGHT AND TRAY TABLE ARE WITHIN EASY ACCESS. NO DISRUPTIVE BEHAVIOR NOTED. WILL ENDORSE TO THE NEXT SHIFT. Addendum: 01/12/23 at 0717 by GIANA CLIFTON RN WITH SITTER ON BEDSIDE. ON TELE MONITORING WITH CURRENT READING OF ST @ 108. WITH IV ACCESS ON RIGHT FOREARM-SL. PATIENT IS A/O X 3.
--- NOTE | 2023-01-12 07:20 | NUR ---
ms rn received on bed, awake,alert,oriented x3-4,not in any form of distress, respirations even and unlabored,no sob noted, lungs are clear,abdomen soft,positive bowel sounds, denies pain at this time,patient will be d/c today to the facility.
--- NOTE | 2023-01-12 08:30 | NUR ---
ms joy breakfast served,due med given,tolerated well.
[2023-01-12] MEDS: PANTOPRAZOLE 40 MG TABLET.DR PO SCH (09:17)
[2023-01-12] MEDS: CHLORDIAZEPOXIDE HCL 25 MG CAPSULE PO SCH (09:18)
--- NOTE | 2023-01-12 11:20 | NUR ---
ms rn transportation came, patient went to the facility, case sealer Merry said no need to give report.
== END 2023-01-12 11:00 | DRG 817 ==
LOC: ER 12:35 → TELE 01-10 03:52
PROVIDERS: ADMIT Nurse Practitioner Acute Care; ATTEND Nurse Practitioner Acute Care
DX: T43.222A Poisoning by selective serotonin reuptake inhibitors, intentional self-harm, initial encounter (principal); F33.3 Major depressive disorder, recurrent, severe with psychotic symptoms; R56.9 Unspecified convulsions; D72.829 Elevated white blood cell count, unspecified; Z20.822 Contact with and (suspected) exposure to COVID-19; J45.909 Unspecified asthma, uncomplicated; I25.10 Atherosclerotic heart disease of native coronary artery without angina pectoris; I10 Essential (primary) hypertension; T43.592A Poisoning by other antipsychotics and neuroleptics, intentional self-harm, initial encounter; Y92.89 Other specified places as the place of occurrence of the external cause; F19.10 Other psychoactive substance abuse, uncomplicated
CPT/HCPCS: 36415; 71045-TC; 80048-TC; 80053-TC; 80076-TC; 82140-TC; 82550-TC; 83735-TC; 84100-TC; 85025-TC; 87081-TC; C9803; G0378; G0480; J2060; J7030; J7120